=== PATIENT | female | born 1995 | race Caucasian/White ===

== ENCOUNTER 2016-08-30 19:37 | Emergency (ER) | payer SELFPAY ==
[2016-08-30 20:04] LABS: URINE BILIRUBIN NEGATIVE (NEGATIVE); URINE BLOOD TRACE (NEGATIVE); URINE GLUCOSE (UA) NEGATIVE (NEGATIVE); URINE LEUKOCYTE ESTERASE TRACE (NEGATIVE); URINE NITRITE NEGATIVE (NEGATIVE); URINE PROTEIN 1+ (NEGATIVE); URINE UROBILINOGEN 1 mg/dL (0-1 mg/dl)
[2016-08-30 20:07] LABS: HCG,QUALITATIVE URINE NEGATIVE; URINE APPEARANCE SL CLOUDY; URINE COLOR YELLOW
[2016-08-30 20:11] LABS: URINE BACTERIA 2+; URINE RBC 0-2 /hpf; URINE WBC 20-40 /hpf
[2016-08-30] MEDS ORDERED: NITROFURANTOIN/NITROFURAN MAC 100 MG CAPSULE ONE (20:52)
== END 2016-08-30 21:08 | disposition home or self-care (01) ==
LOC: ED 19:37
DX: N39.0 Urinary tract infection, site not specified (principal)
CPT/HCPCS: 81025; 81001; 99283 ×2; A9270